=== PATIENT | male | born 1990 | race Caucasian/White ===

== ENCOUNTER 2018-06-30 16:37 | Emergency (ER) | payer SELFPAY ==
[~2018-06-30] VITALS: Ht 185.4 cm; Wt 80.0 kg
[2018-06-30 18:15] VITALS: BP 115/68
[2018-06-30] MEDS ORDERED: KETOROLAC 60MG/2ML VIAL IM ONE (18:15)
[2018-06-30] MEDS ORDERED: DIAZEPAM 2 MG TABLET PO ONE (18:15)
== END 2018-06-30 20:10 | disposition home or self-care (01) ==
LOC: ER 16:37
DX: M54.2 Cervicalgia (principal)
CPT/HCPCS: 72125; 72131; 96372; 99284; J1885